=== PATIENT | female | born 1985 ===

== ENCOUNTER 2017-12-22 02:04 | Emergency (ER) | payer MEDICAID ==
[2017-12-22 02:41] VITALS: BMI 27.3
[2017-12-22 02:55] VITALS: TEMP 98.7
[2017-12-22] MEDS ORDERED: Sodium Chloride 0.9% 1,000 ML IV STA (02:55)
--- NOTE | 2017-12-22 02:55 | ED PDOC ---
Arrival/HPI - General Time Seen by Provider: 12/22/17 02:47 Historian: Patient - History of Present Illness Narrative History of Present Illness (Text): 12/22/17 02:55 32 year old female, with no significant past medical history, presents to the Emergency department complaining of nausea, vomiting and watery diarrhea since couple of hours. Patient informs associated abdominal discomfort prompting her to visit the Emergency department for evaluation. Patient denies any hematochezia, dysuria or changes in appetite. Patient denies any fever, chills, chest pain, shortness of breath or any other complaints. Time/Duration: 4-6 hours Symptom Onset: Gradual Symptom Course: Unchanged Quality: Aching Activities at Onset: Light Context: Home Past Medical History - Provider Review Nursing Documentation Reviewed: Yes Family/Social History - Physician Review Nursing Documentation Reviewed: Yes Family/Social History: No Known Family HX Allergies/Home Meds Allergies/Adverse Reactions: Allergies No Known Allergies Allergy (Verified 12/22/17 02:40) Review of Systems - Physician Review All systems were reviewed & negative as marked: Yes - Review of Systems Constitutional: Normal. absent: Fevers Eyes: Normal ENT: Normal Respiratory: Normal. absent: SOB Cardiovascular: Normal. absent: Chest Pain Gastrointestinal: Abdominal Pain, Diarrhea, Nausea, Vomiting. absent: Appetite Changes, Hematochezia Genitourinary Female: Normal. absent: Dysuria Musculoskeletal: Normal Skin: Normal Neurological: Normal Endocrine: Normal Hemo/Lymphatic: Normal Psychiatric: Normal Physical Exam Vital Signs Reviewed: Yes Vital Signs Temp Pulse Resp BP Pulse Ox 12/22/17 06:35 82 18 110/70 98 12/22/17 05:00 100 H 18 106/66 98 12/22/17 02:56 70 16 121/74 98 12/22/17 02:20 98.7 F Temperature: Afebrile Blood Pressure: Normal Pulse: Regular Respiratory Rate: Normal Appearance: Positive for: Well-Appearing, Non-Toxic, Comfortable Pain Distress: None Mental Status: Positive for: Alert and Oriented X 3 - Systems Exam Head: Present: Atraumatic, Normocephalic Pupils: Present: PERRL Extroacular Muscles: Present: EOMI Conjunctiva: Present: Normal Respiratory/Chest: Present: Clear to Auscultation, Good Air Exchange. No: Respiratory Distress, Accessory Muscle Use Cardiovascular: Present: Regular Rate and Rhythm, Normal S1, S2. No: Murmurs Abdomen: Present: Normal Bowel Sounds. No: Tenderness, Distention, Peritoneal Signs, Rebound, Guarding Upper Extremity: Present: Normal Inspection. No: Cyanosis, Edema Lower Extremity: Present: Normal Inspection. No: Edema Neurological: Present: GCS=15, CN II-XII Intact, Speech Normal Skin: Present: Warm, Dry, Normal Color. No: Rashes Psychiatric: Present: Alert, Oriented x 3, Normal Insight, Normal Concentration Medical Decision Making ED Course and Treatment: 12/22/17 02:59 Impression: 32 year old female presents to the Emergency department for nausea, vomiting, diarrhea and abdominal discomfort. Plan: -- labs -- Toradol -- Zofran -- IV Fluids -- Reassess and disposition Progress Notes: 12/22/17 03:01 - Lab Interpretations Lab Results: 12/22/17 03:50 12/22/17 03:50 Lab Results 12/22/17 03:50: Sodium 140, Potassium 4.1, Chloride 104, Carbon Dioxide 24, Anion Gap 16, BUN 16, Creatinine 0.7, Est GFR ( Amer) > 60, Est GFR (Non- Af Amer) > 60, Random Glucose 119 H, Calcium 9.0, Total Bilirubin 1.7 H, AST 45 H, ALT 46, Alkaline Phosphatase 62, Total Protein 7.7, Albumin 4.3, Globulin 3.4 , Albumin/Globulin Ratio 1.3, Lipase 90 12/22/17 03:50: Urine Color yellow, Urine Appearance Slight-cloudy, Urine pH 6.0 , Ur Specific [place] >= 1.030, Urine Protein 100 H, Urine Glucose (UA) Negative , Urine Ketones 40 H, Urine Blood Large H, Urine Nitrate Negative, Urine Bilirubin Negative, Urine Urobilinogen 0.2, Ur Leukocyte Esterase Negative, Urine RBC 25 - 30, Urine WBC 2 - 5, Ur Epithelial Cells 6 - 8 12/22/17 03:50: WBC 7.4, RBC 4.59, Hgb 13.5, Hct 39.3, MCV 85.6, MCH 29.4, MCHC 34.4, RDW 12.9, Plt Count 262, MPV 10.5, Gran % 86.7 H, Lymph % (Auto) 4.7 L, Door % (Auto) 7.8 H, Eos % (Auto) 0.7 L, Baso % (Auto) 0.1, Gran # 6.41, Lymph # (Auto) 0.4 L, Door # (Auto) 0.6, Eos # (Auto) 0.1, Baso # (Auto) 0.01, Neutrophils % (Manual) 90 H, Band Neutrophils % 1, Lymphocytes % (Manual) 4 L, Monocytes % (Manual) 3, Eosinophils % (Manual) 1, Basophils % (Manual) 1, Toxic Granulation 2+, Platelet Evaluation Normal, Hypochromasia 1+, Rouleaux 1+ - Medication Orders Current Medication Orders: Discontinued Medications Sodium Chloride (Sodium Chloride 0.9%) 1,000 mls @ 1,000 mls/hr IV .Q1H STA Stop: 12/22/17 03:54 Last Admin: 12/22/17 03:50 Dose: 1,000 mls/hr eMAR Start Stop Document 12/22/17 03:50 RG (Rec: 12/22/17 04:06 [id number]) Intravenous Solution Start Date 12/22/17 Start Time 03:50 Ketorolac Tromethamine (Toradol) 30 mg IVP STAT STA Stop: 12/22/17 02:56 Last Admin: 12/22/17 03:59 Dose: 30 mg GABY Pain Assessment Document 12/22/17 03:59 RG (Rec: 12/22/17 04:05 [id number]) Pain Reassessment Is this a pain reassessment? Yes Sleep Is patient sleeping during reassessment? No Presence of Pain Presence of Pain Yes Pain Scale Used Pain Scale Used Numeric Location Upper or Lower Upper Pain Location Body Site Abdomen Description Description Constant Pain Behavior Irritability Rubbing Site Aggravating Factors Contant IVP Administration Document 12/22/17 03:59 (Rec: 12/22/17 04:05 [id number]) Charges for Administration # of IVP Administrations 1 Re-Assess: MAR Pain Assessment Document 12/22/17 04:59 (Rec: 12/22/17 05:56 [id number]) Pain Reassessment Is this a pain reassessment? Yes Sleep Is patient sleeping during reassessment? Yes Ondansetron HCl (Zofran Inj) 4 mg IVP STAT STA Stop: 12/22/17 02:56 Last Admin: 12/22/17 03:58 Dose: 4 mg IVP Administration Document 12/22/17 03:58 ZARA (Rec: 12/22/17 04:06 [id number]) Charges for Administration # of IVP Administrations 1 - Scribe Statement The provider has reviewed the documentation as recorded by the Scribe Cody Munson. All medical record entries made by the Scribe were at my direction and personally dictated by me. I have reviewed the chart and agree that the record accurately reflects my personal performance of the history, physical exam, medical decision making, and the department course for this patient. I have also personally directed, reviewed, and agree with the discharge instructions and disposition. Disposition/Present on Arrival - Present on Arrival Any Indicators Present on Arrival: No - Disposition Have Diagnosis and Disposition been Completed?: Yes Diagnosis: Gastroenteritis Disposition: HOME/ ROUTINE Disposition Time: 06:30 Condition: IMPROVED Discharge Instructions (ExitCare): Gastroenteritis (ED) Prescriptions: Ondansetron [Zofran Odt] 8 mg PO TID PRN #10 odt PRN Reason: Nausea/Vomiting Referrals: MeeGeniusfelecia Carl, [Primary Care Provider] - Follow up with primary Forms: [employer] (Turkmen)
[2017-12-22 02:56] VITALS: O2SAT 98
[2017-12-22 04:06] LABS: BASO # 0.01 K/mm3 (0.0-2.0); BASO % 0.1 % (0.0-3.0); EOS # 0.1 (0.0-0.7); EOS % 0.7 % (1.5-5.0); GRAN # 6.41 (1.4-6.5); GRAN % 86.7 % (50.0-68.0); HEMOGLOBIN 13.5 g/dL (12.0-16.0); LYMPH # 0.4 (1.2-3.4); LYMPH % 4.7 % (22.0-35.0); MEAN CELL VOLUME 85.6 fl (80.0-105.0); MEAN CORPUSCULAR HEMOGLOBIN 29.4 pg (25.0-35.0); MEAN CORPUSCULAR HGB CONC 34.4 g/dl (31.0-37.0); MEAN PLATELET VOLUME 10.5 fl (7.0-11.0); MONO # 0.6 (0.1-0.6); MONO % 7.8 % (1.0-6.0); PLATELET COUNT 262 10^3/uL (120.0-450.0); RBC 4.59 10^6/uL (3.5-6.1); RED CELL DISTRIBUTION WIDTH 12.9 % (11.5-14.5); URINE BILIRUBIN NEGATIVE (NEGATIVE); URINE BLOOD LARGE (NEGATIVE); URINE GLUCOSE (UA) NEGATIVE (NEGATIVE); URINE LEUKOCYTE ESTERASE NEGATIVE Leu/uL (NEGATIVE); URINE PROTEIN 100 mg/dL (<30 mg/dL); URINE UROBILINOGEN 0.2 E.U./dL (<1 E.U./dL); WHITE BLOOD COUNT 7.4 10^3/ul (4.5-11.0)
[2017-12-22 04:21] LABS: URINE APPEARANCE SLIGHT-CLOUDY (CLEAR)
[2017-12-22 04:42] LABS: ALB/GLOB RATIO 1.3 (1.1-1.8); ALBUMIN 4.3 g/dL (3.0-4.8); ALT/SGPT 46 U/L (7-56); AST/SGOT 45 U/L (14-36); BLOOD UREA NITROGEN 16 mg/dL (7-21); GFR AFRICAN-AMERICAN > 60; GFR NON-AFRICAN AMERICAN > 60; LIPASE 90 U/L (23-300); URINE RBC 25 - 30 /hpf (0-2)
[2017-12-22 05:07] LABS: BAND 1 % (0-2); BASOPHIL 1 % (0.0-1.0); EOSINOPHIL 1 % (0.0-3.0); HYPOCHROMIA 1+; LYMPHOCYTE 4 % (22.0-35.0); MONOCYTE 3 % (1.0-6.0); NEUTROPHIL 90 % (50.0-70.0); PLATELET ESTIMATE NORMAL (NORMAL); TOXIC GRANULATION 2+
[2017-12-22 05:08] LABS: ROULEAU 1+
[2017-12-22 05:39] VITALS: RESP 18
[2017-12-22 06:36] VITALS: BP 110/70; PULSE 82
== END 2017-12-22 06:38 | disposition home or self-care (01) ==
LOC: MERGE 02:04 → ED 02:04
DX: K52.9 Noninfective gastroenteritis and colitis, unspecified (principal)
CPT/HCPCS: 80053; 81001; 83690; 85025; 96374; 96375; 99285; J1885; J2405; J7040